=== PATIENT | male | born 1945 | race Caucasian/White ===

== ENCOUNTER 2019-06-08 11:00 | Inpatient (IN) | payer OTHER ==
[~2019-06-08] VITALS: Ht 170.2 cm; Wt 85.3 kg
[2019-06-08] MEDS ORDERED: LASIX40 MG (11:52)
== END 2019-06-29 10:47 | disposition designated cancer center or children's hospital (05) | DRG 189 ==
LOC: ER 11:00 → MEDJ 18:32 → ICU-2 18:32 → ICU 06-09 22:41 → MEDJ 06-17 10:43
PROVIDERS: ADMIT Internal Medicine
PROC: 5A09357 Assistance with Respiratory Ventilation, Less than 24 Consecutive Hours, Continuous Positive Airway Pressure (ICD-10-PCS; principal; 2019-06-09)
PROC: 3E0F7GC Introduction of Other Therapeutic Substance into Respiratory Tract, Via Natural or Artificial Opening (ICD-10-PCS; 2019-06-09)
PROC: 4A12X4Z Monitoring of Cardiac Electrical Activity, External Approach (ICD-10-PCS; 2019-06-09)
PROC: 8E0ZXY6 Isolation (ICD-10-PCS; 2019-06-09)
PROC: 4A033R1 Measurement of Arterial Saturation, Peripheral, Percutaneous Approach (ICD-10-PCS; 2019-06-20)
DX: J96.01 Acute respiratory failure with hypoxia (principal); J15.7 Pneumonia due to Mycoplasma pneumoniae; J44.1 Chronic obstructive pulmonary disease with (acute) exacerbation; J44.0 Chronic obstructive pulmonary disease with (acute) lower respiratory infection; J10.1 Influenza due to other identified influenza virus with other respiratory manifestations; E03.9 Hypothyroidism, unspecified; I48.91 Unspecified atrial fibrillation; E11.9 Type 2 diabetes mellitus without complications; J20.9 Acute bronchitis, unspecified; I27.20 Pulmonary hypertension, unspecified; R33.9 Retention of urine, unspecified; I11.0 Hypertensive heart disease with heart failure; K74.60 Unspecified cirrhosis of liver; I50.814 Right heart failure due to left heart failure; Z95.2 Presence of prosthetic heart valve